=== PATIENT | male | born 1960 | race Caucasian/White ===

== ENCOUNTER 2017-02-09 02:36 | Emergency (ER) | payer OTHER ==
[~2017-02-09] VITALS: Ht 177.8 cm; Wt 90.7 kg
[~2017-02-09 02:36] MED LIST: ASPIRIN EC81 MG PO; METOPROLOL SUCC25 MG PO; MOTRIN IB200 MG PO; OMEPRAZOLE20 MG PO; PERCOCET 5-3251 EACH PO; PERCOCET 7.5-31 EACH PO; PRAVACHOL40 MG PO; TAMSULOSIN HCL0.4 MG PO
[2017-02-09] MEDS ORDERED: METOPROLOL SUCC50 MG PO (02:46)
== END 2017-02-09 03:21 | disposition home or self-care (01) ==
LOC: ED 02:36
DX: R10.9 Unspecified abdominal pain (principal); I10 Essential (primary) hypertension; K21.9 Gastro-esophageal reflux disease without esophagitis; Z90.49 Acquired absence of other specified parts of digestive tract; Z87.442 Personal history of urinary calculi; Z91.040 Latex allergy status; Z79.899 Other long term (current) drug therapy; Z79.82 Long term (current) use of aspirin
CPT/HCPCS: 81001; 99283

== ENCOUNTER 2017-10-03 21:29 | Emergency (ER) | payer OTHER ==
[~2017-10-03] VITALS: Ht 177.8 cm; Wt 90.7 kg
[~2017-10-03 21:29] MED LIST changes: +METOPROLOL SUCC50 MG PO
[2017-10-03] MEDS ORDERED: ZOFRAN ODT4 MG PO ×2 (22:54)
[2017-10-03] MEDS ORDERED: NORCO 5-325 TA1 EACH PO ×2 (22:54)
[2017-10-06] MEDS ORDERED: FLOMAX0.4 MG PO ×2 (04:04)
== END 2017-10-03 23:25 | disposition home or self-care (01) ==
LOC: ED 21:29
DX: N20.1 Calculus of ureter (principal); I10 Essential (primary) hypertension; K21.9 Gastro-esophageal reflux disease without esophagitis; Z79.82 Long term (current) use of aspirin; Z79.899 Other long term (current) drug therapy
CPT/HCPCS: 74176; 81001; 96374; 96375; 99284; J1170; J1885; J2405

== ENCOUNTER 2017-10-06 03:50 | Emergency (ER) | payer OTHER ==
[~2017-10-06] VITALS: Ht 177.8 cm; Wt 90.7 kg
[~2017-10-06 03:50] MED LIST changes: +NORCO 5-325 TA1 EACH PO; +ZOFRAN ODT4 MG PO
[2017-10-06] MEDS ORDERED: FLOMAX0.4 MG PO (04:04)
== END 2017-10-06 07:01 | disposition home or self-care (01) ==
LOC: ED 03:50
DX: N20.1 Calculus of ureter (principal); I10 Essential (primary) hypertension; K21.9 Gastro-esophageal reflux disease without esophagitis; Z87.442 Personal history of urinary calculi; Z91.041 Radiographic dye allergy status; Z91.040 Latex allergy status; Z79.899 Other long term (current) drug therapy; Z79.82 Long term (current) use of aspirin
CPT/HCPCS: 96374; 96375; 99282; J1170; J1885; J2405; J7030

== ENCOUNTER 2017-10-06 16:04 | Day surgery (SDC) | payer OTHER ==
[~2017-10-06] VITALS: Ht 177.8 cm; Wt 97.1 kg
[~2017-10-06 16:04] MED LIST changes: +FLOMAX0.4 MG PO
--- NOTE | 2017-10-06 18:38 | NUR ---
PT ARRIVED TO ROOM 109 AT 1830. AT BEDSIDE. CHANGED INTO GOWN. WILL START AN IV NOW.
--- NOTE | 2017-10-06 19:00 | NUR ---
RECEIVED REPORT FROM RN. PATIENT IS RESTING IN BED, BREATHING IS EVEN AND UNLABORED. REPORTS 8/10 PAIN IN RIGHT FLANK. CALL LIGHT WITHIN REACH.
--- NOTE | 2017-10-06 19:20 | NUR ---
PATIENT REPORTS 8/10 PAIN IN RIGHT FLANK, PRN DILAUDID GIVEN PER EMAR. DENIES FURTHER NEEDS. CALL LIGHT WITHIN REACH.
--- NOTE | 2017-10-06 19:46 | NUR ---
PATIENT TAKEN OFF FLOOR BY OR TEAM VIA STRETCHER TO OR.
--- NOTE | 2017-10-06 21:56 | NUR ---
10/06/172155 Saige Riggs 2125: PATIENT ARRIVES TO PACU TENSE AND SHAKING. OXYGEN SATURATION IS DECREASING ON 6L VIA MASK. OXYGEN SATURATION INCREASED TO 10L VIA MASK. PATIENT IS ALERT AND DENIES SOB. PATIENT DENIES PAIN. PATIENT REPORTS HE IS "CONFUSED" AND HAS A "SCRATCHY COUGH". ORTHOPTIST IS AT THE BEDSIDE ADMINISTERING BETA FERN. NEBULIZER TREATMENT IS VERBALLY ORDERED AND THAT IS GIVEN. HOB IS ELEVATED. CXR IS VERBALLY ORDERED AND THAT IS COMPLETE.
--- NOTE | 2017-10-06 23:28 | NUR ---
ADMIT TO CCU FROM PACU AT 2305. PT IS ALERT, ORIENTED, DENIES PAIN. HR 70-90, SINUS RHYTHM. DR PALMA IN TO SEE PT. PT GIVEN CALL LIGHT AND INSTRUCTED TO CALL WHEN NEEDS TO VOID. DRINKING WATER. GIVEN ICE CHIPS.
--- NOTE | 2017-10-07 00:22 | NUR ---
AMB TO BR, NO INC IN HR. WAS OFF 02 AND DID DESAT TO 86%, 02 REPLACED 4L NC. URINE BURGUNDY COLORED AND PT DID REPORT SOME R KIDNEY PAIN WITH URINATION. SCDS IN PLACE AFTER GETTING BACK TO BED.
--- NOTE | 2017-10-07 02:10 | NUR ---
ANSWERED CALL LIGHT AND FOUND PT STANDING NEXT TO BED, STATING NEEDING TO VOID. SCD'S DISCONNECT AND PT AMB TO BR TO VOID BLOODY URINE. BACK TO BED. HAD TAKEN 02 OFF. AFTER GETTING BACK TO BED PT DID SHIVER SOME WHICH HE SAID WAS DUE TO KIDNEY PAIN. AFEBRILE. SAT 89% ON RA, 02 AT 2L NC NOW.
--- NOTE | 2017-10-07 03:36 | NUR ---
SLEEPING, SAT 96/5 ON 2L NC.
--- NOTE | 2017-10-07 05:04 | NUR ---
PT AWAKENED FROM VERY SOUND SLEEP. BREATH TONES SL COARSE IN BASES THAT CLEARED WITH COUGHING. UP TO BR TO VOID BLOODY URINE. 02 DEC TO 1L NC. TAKING ICE CHIPS. TOLD PT TO LET ME KNOW IF PAIN WITH URINATION DOESN'T GET BETTER AND WILL GIVE PAIN MED.
--- NOTE | 2017-10-07 07:37 | NUR ---
REPORT TO DAY SHIFT, NO OTHER CHANGES.
--- NOTE | 2017-10-07 07:58 | NUR ---
Report recieved from second shift supervisor RN. Patient asleep in room with HOB up at 35 degrees.
--- NOTE | 2017-10-07 08:46 | NUR ---
Breakfast ordered and now here, patient eating. Has urinated this shift and states is bloody and painful, burning and an ache up into kidney. O2 was removed and O2 saturation is 94% currently with RR of 21.
--- NOTE | 2017-10-07 09:19 | NUR ---
Up to bathroom to urinate.
--- NOTE | 2017-10-07 09:52 | NUR ---
STATES WHEN CAME BACK FROM BATHROOM STARTED TO FEEL HOT AND INCREASED PAIN IN KIDNEY, NOW HAS DISSIPATED.
--- NOTE | 2017-10-07 10:16 | NUR ---
Dr Stovall called me, I gave her updates on how the patient did through the evening and this morning. She states will be coming in to see him around lunch time.
--- NOTE | 2017-10-07 10:29 | NUR ---
Dr Lee in to see patient. in room too. Patient up to restroom to urinate.
--- NOTE | 2017-10-07 11:03 | OR ---
[facility] [address], [place] [address] Signed DATE OF OPERATION: 10/06/2017 SURGEON: Augustina Bloom MD PREOPERATIVE DIAGNOSES: 1. Right ureterolithiasis. 2. Severe right-sided flank pain with associated nausea and vomiting. POSTOPERATIVE DIAGNOSES: 1. Right ureterolithiasis. 2. Severe right-sided flank pain with associated nausea and vomiting. 3. Distal right ureteral stenosis. NAMES OF PROCEDURES: 1. Diagnostic cystoscopy with right retrograde pyelogram. 2. Right semi-rigid ureteroscopy with laser lithotripsy and basket extraction of stones. 3. Insertion of an indwelling right ureteral stent. ANESTHESIA: General. ESTIMATED BLOOD LOSS: Minimal. COMPLICATIONS: None. SPECIMENS: None. INDICATIONS FOR PROCEDURE: Mr. Antoine is a very pleasant 57-year-old gentleman with a longstanding history of nephrolithiasis, who presented to the emergency department early this morning with a 3-day history of severe right-sided flank pain with associated nausea and vomiting. The emergency department physician contacted me this morning to let me know that the patient was requesting surgical extraction of the stone. The patient was immediately placed on the clinic schedule and was evaluated. He was afebrile at the time. His urine appeared clear. He was still experiencing severe right-sided flank pain with nausea. The patient has a long-standing history of stones and has required multiple ureteral stone extractions in the past. The patient requested urgent stone extraction and after Electronically Signed By: AUGUSTINA BLOOM MD 10/07/17 1103 PATIENT NAME: SUMAYA ANTOINE II OPERATIVE REPORT DATE OF : 62 REPORT #: [id number] PHYSICIAN: AUGUSTINA BLOOM MD PCP: Huber BOYKIN MD REPORT IS CONFIDENTIAL AND NOT TO BE RELEASED WITHOUT AUTHORIZATION [facility] [address], [place] [address] Signed discussion of the risks and benefits of the procedure, the patient was placed on the operating room schedule later this evening to undergo right ureteroscopy with laser lithotripsy and basket extraction of stones. OPERATIVE FINDINGS: 1. On cystoscopy, there was no evidence of any suspicious mass, lesions, or stones. Bilateral ureteral orifices are noted in their normal anatomic location and are diminutive in nature. 2. Right retrograde pyelogram was initially performed, which revealed the presence of an approximately 4 mm stone, approximately 2 cm proximal to the right ureterovesical junction. After extraction of the stone, I repeated a right retrograde pyelogram, which revealed no evidence of any contrast extravasation from the right ureter. It also confirmed that the entirety of the right ureteral stone had been successfully extracted. 3. Right semi-rigid ureteroscopy revealed approximately 4 mm stone in the distal portion of the ureter, approximately 2 cm proximal to the right ureterovesical junction. The stone was fragmented using a holmium laser without difficulty. The fragments were then extracted through a distal ureter that was very diminutive in caliber with some evidence of previous scar tissue noted. The entire stone was successfully extracted. 4. A 6 x 26 cm contour double-J ureteral stent was inserted into the right ureter under direct visualization without difficulty. DESCRIPTION OF PROCEDURE: After informed consent was obtained, the patient was taken back to the operating room. He was transferred from the bed to the operating room table, where general anesthesia was induced. He was placed in the dorsal lithotomy position and his genitalia prepped and draped in a standard sterile fashion. Using a 30-degree lens on a 22-Monegasque introducer, rigid cystoscope was inserted through his urethra and into his bladder under direct visualization. Panendoscopic views of the bladder were then obtained. Please see the findings. Attention was turned to the right ureteral orifice. A cone-tipped catheter was inserted just at the level of the right ureteral orifice and a right retrograde pyelogram was performed. Please see the findings. I then inserted a 0.035 Sensor wire into the right ureter and up into the right collecting system and confirmed placement of the wire on fluoroscopy. Over the wire, I passed a semi-rigid ureteroscope into the distal right ureter and was then able to visualize the 4 mm stone in the distal right ureter along with the associated area of stenosis. The stone was fragmented using holmium laser at the 8 and 0.8 power configuration. The stone fragmented easily. I was able to use a Zero tip basket to then extract the stones one by one without difficulty. Once I was satisfied that all the stones were extracted, I repeated the retrograde pyelogram, which confirmed my suspicion. I then inserted the Sensor wire into the right ureter via the ureteroscope and confirmed placement of the wire in the right renal pelvis. I then removed the ureteral scope. Over the wire, I passed a 6 x 26 cm contour double-J ureteral stent into the patient's right ureter under direct visualization Electronically Signed By: AUGUSTINA BLOOM MD 10/07/17 1103 PATIENT NAME: SUMAYA ANTOINE II OPERATIVE REPORT DATE OF : 62 REPORT #: [id number] PHYSICIAN: AUGUSTINA BLOOM MD PCP: Huber BOYKIN MD REPORT IS CONFIDENTIAL AND NOT TO BE RELEASED WITHOUT AUTHORIZATION [address] [address] Signed without difficulty. The Sensor wire was pulled. An adequate proximal coil was seen on fluoroscopy along with an adequate distal coil within the bladder. The patient's bladder was then drained and the procedure was then terminated. The patient tolerated the procedure well without any complication. He will now be transferred to the postanesthesia care unit in stable condition. DISPOSITION: I discussed the details of today's procedure with the patient's and answered all questions. He will be sent home today with Percocet 5/325, dispense #30 as needed for pain along with Cipro 500 mg one tab p.o. b.i.d. for a total of seven days. He has agreed to contact the clinic tomorrow to schedule a followup appointment on or around October 16 to undergo cystoscopy with right ureteral stent extraction. MD ALDO Graves/ERICA /[id number] Copies: ~ Electronically Signed By: AUGUSTINA BLOOM MD 10/07/17 1103 PATIENT NAME: SUMAYA ANTOINE II OPERATIVE REPORT DATE OF : 62 REPORT #: [id number] PHYSICIAN: AUGUSTINA BLOOM MD PCP: Huber BOYKIN MD REPORT IS CONFIDENTIAL AND NOT TO BE RELEASED WITHOUT AUTHORIZATION
--- NOTE | 2017-10-07 11:48 | NUR ---
VS AND I&O'S TAKEN AND DOCUMENTED. URINAL EMPTIED. PT STATES NO NEEDS AT THIS TIME. INFORMED PT TO CALL IF HE NEEDS ANYTHING. CALL LIGHT IS IN REACH.
--- NOTE | 2017-10-07 12:58 | NUR ---
PATIENT UP WALKING IN THE HALLS, NOT HAVING ANY PAIN EXCEPT FOR SOME DISCOMFFORT WHEN HE URINATES. PATIENT HAS BEEN FREE OF NAUSEA WELL.
--- NOTE | 2017-10-07 13:11 | NUR ---
PATIENTT JUST GOT FOOD FROM THE [employer] AND IS EATING A SANDWICH.
--- NOTE | 2017-10-07 15:18 | NUR ---
PATIENT UP TO THE RESTROOM AND THEN BACK TO THE BEDSIDE RECLINE TO WORK ON HIS TABLET. PATIENT HAS BEEN NAPPING AWAITING THE RETURN OF FOR DISCHARGE AT 5PM.
--- NOTE | 2017-10-07 18:51 | EKG ---
[facility] [address] [facility] [place] [address] Signed Normal sinus rhythm Normal ECG No previous ECGs available Confirmed by JASON PALMA MD ([id number]) on 10/07/2017 6:51:09 PM Electronically Signed By: JASON PALMA MD 10/07/17 185 PATIENT NAME: HLOGER ANTOINETARIQ LALNATY II Electrocardiogram DATE OF : 62 PHYSICIAN: JASON PALMA MD REPORT #: [id number] REPORT IS CONFIDENTIAL AND NOT TO BE RELEASED WITHOUT AUTHORIZATION
--- NOTE | 2017-10-07 19:24 | EKG ---
[facility] [address] [place] [address] [place], [place] [address] Signed Normal sinus rhythm Normal ECG When compared with ECG of 06-OCT-2017 19:31, (Unconfirmed) No significant change was found Confirmed by JASON PALMA MD ([id number]) on 10/07/2017 7:23:52 PM Electronically Signed By: JASON PALMA MD 10/07/17 1924 PATIENT NAME: SUMAYA ANTOINE II Electrocardiogram DATE OF : 62 PHYSICIAN: JASON PALMA MD REPORT #: [id number] REPORT IS CONFIDENTIAL AND NOT TO BE RELEASED WITHOUT AUTHORIZATION
--- NOTE | 2017-10-07 20:21 | NUR ---
PATIENT SITTING IN CHAIR UPON INITIAL ASSESSMENT THIS EVENING AND OFF THE MONITOR, PATIENT IS EXPECTING TO D/C HOME. ASSESSMENT COMPLETE. VITALS TAKEN AND TEMP NOTED TO BE 98.7 ORAL AT THIS TIME. HEART RATE IN THE 70s AT THIS TIME. SP02 93% INITIALLY, BUT AFTER SOME DEEP BREATHS NOTED TO BE UP TO 98%. LUNGS WERE CLEAR TO AUSCULTATION. PATIENT STATES HE IS FEELING WELL AND EAGER TO GO HOME. IV TAKEN OUT OF RIGHT HAND WITH TIP INTACT. PT'S NEXT TO PATIENT AND GOES OVER DISCHARGE TEACHING WITH THIS RN. PT D/C WITH PRESCRIPTIONS AND DISCHARGE INFORMATION. ALL QUESTIONS ANSWERED BEST POSSIBLE.
== END 2017-10-07 20:15 | disposition home or self-care (01) ==
LOC: MS 16:04 → DS 16:04 → CCU 16:04 → MS 16:04 → CCU 22:47 → MS 22:47 → CCU 22:47 → EDSTATUS 10-07 11:24 → DS 10-07 20:15
PROVIDERS: Urology
PROC: 0TC68ZZ Extirpation of Matter from Right Ureter, Via Natural or Artificial Opening Endoscopic (ICD-10-PCS; principal; 2017-10-06 20:00)
PROC: 0T768DZ Dilation of Right Ureter with Intraluminal Device, Via Natural or Artificial Opening Endoscopic (ICD-10-PCS; 2017-10-06 20:00)
PROC: BT1DYZZ Fluoroscopy of Right Kidney, Ureter and Bladder using Other Contrast (ICD-10-PCS; 2017-10-06 20:00)
DX: N20.1 Calculus of ureter (principal); N13.5 Crossing vessel and stricture of ureter without hydronephrosis; K21.9 Gastro-esophageal reflux disease without esophagitis; E78.5 Hyperlipidemia, unspecified; Z79.899 Other long term (current) drug therapy; Z79.82 Long term (current) use of aspirin; I10 Essential (primary) hypertension; Z91.040 Latex allergy status; Z91.041 Radiographic dye allergy status
CPT/HCPCS: 00910; 36415; 71045; 74450; 80048; 85025; 93005; 93010; C2617; J0330; J0696; J1170; J2175; J2250; J2405; J2543; J2704; J2765; J3010; J7030; J7120; Q9967

== ENCOUNTER 2020-09-03 06:36 | Day surgery (SDC) | payer OTHER ==
[~2020-09-03] VITALS: Ht 176.5 cm; Wt 95.7 kg
[2020-09-03] MEDS ORDERED: BAYER CHEWABLE81 MG PO (06:59)
--- NOTE | 2020-09-03 08:28 | NUR ---
09/03/20 0828 Maggi Schwarz 0824- PT ARRIVES TO PACU EASILY AROUSABLE TO VOICE. PT REPORTS NO PAIN OR NAUSEA. PT EDUCATED ABOUT PASSING FLATUS. PT STATES UNDERSTANDING. PT FALLS TO SLEEP WHEN NOT BEING TALKED TO. RESP EVEN AND UNLABORED. OXYGEN SAT HIGH 90'S ON 3L VIA NC.
--- NOTE | 2020-09-03 09:23 | NUR ---
HAD VERY BRIEF MOMENT WITH PT HE WAS BEING TAKEN FOR SCOPE. GAVE BLESSING, CONNECTED WITH PTS' KALLIE. ALL QUESTIONS ASKED ANSWERED. WILL FOLLOW
--- NOTE | 2020-09-04 15:23 | OR ---
[facility] [address] [place], [place] [address] Signed DATE OF OPERATION: 09/03/2020 SURGEON: Mono Wilkins MD PREOPERATIVE DIAGNOSES: 1. Longstanding gastroesophageal reflux, minimal episodic dysphagia. 2. Colon surveillance. POSTOPERATIVE DIAGNOSES: 1. Normal upper endoscopy. No evidence of stricture or neoplasm. No Nova's epithelium. 2. Diverticula of sigmoid colon. 3. Possible small polyp proximal ascending colon. PROCEDURE: 1. Esophagogastroduodenoscopy with biopsy. 2. Total colonoscopy to cecum with cold morcellation and excision of polyp x1. ANESTHESIA: Intravenous sedation; fentanyl 150 mcg, Versed 9 mg. 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 In 2009, he underwent upper endoscopy for reflux symptoms as well as colonoscopy for rectal bleeding. That procedure was on February 22, 2010, found at that time was a small hiatal hernia with minimal distal esophagitis and a normal colon except for internal hemorrhoidal changes. The patient has been on PPI medication since that time and is generally free of reflux symptoms though has minimal and rare dysphagia, none in recent times. He is admitted to undergo colonoscopy for surveillance as well as upper endoscopy concurrently per his request. The risk of bleeding, infection, and perforation related to both endoscopic procedures were reviewed with him in detail. He understands and wished to proceed. FINDINGS: Upper endoscopy was normal. I saw no significant degradation of the flap valve and the mucosa of the esophagus was entirely normal. There is certainly no stricture. Stomach and duodenum were normal as well. CLOtest was negative 30 minutes post procedure. On colonoscopy, the prep was excellent. Complete colonoscopy was undertaken to the Electronically Signed By: MONO WILKINS MD 09/04/20 1523 PATIENT NAME: SUMAYA ANTOINE II OPERATIVE REPORT DATE OF : 62 REPORT #: [id number] PHYSICIAN: MONO WILKINS MD PCP: MIRTA AYALA MD REPORT IS CONFIDENTIAL AND NOT TO BE RELEASED WITHOUT AUTHORIZATION [facility] [address] [place], [place] [address] Signed cecum including intubation of the cecum. There was a very small polyp of the proximal ascending colon which was excised with cold morcellation technique. A few diverticula were noted at the sigmoid. There were no other findings of concern including no sign of active hemorrhoidal disease. DESCRIPTION OF PROCEDURE: The patient was brought to the endoscopy suite, given topical lidocaine spray, hypopharyngeal anesthesia and placed in lateral decubitus position. He was given intravenous sedation to the point of slurred speech and nystagmus with full cardiopulmonary monitoring. A bite block was placed. An Olympus video upper endoscope was passed in the hypopharynx. The vocal cords appeared normal. Scope was advanced to the esophagus; throughout its length it was normal. Scope was passed to the stomach, which was insufflated with air. Rugal folds were normal. Antral motility normal. Pylorus was normal. Scope was passed through into the duodenum, which was normal. Biopsies were taken to assess for celiac disease. The scope was withdrawn and biopsies taken of the antrum for both VITO and pathologic testing. Retroflexed view was undertaken showing no sign of hiatal hernia per se. No effacement of the flap valve per se either. The scope was withdrawn to the distal esophagus where completely normal mucosa was noted. Biopsies were obtained. The scope was withdrawn and midesophageal biopsies were also obtained to assess for eosinophilic esophagitis. The scope was removed and the patient was then prepared for colonoscopy. Additional sedation was given. Digital rectal examination was performed which was normal including a normal prostate. The Olympus video colonoscope was passed in the rectum and manipulated throughout the colon noting diverticula of the sigmoid. The scope was ultimately advanced to the right colon and visualization of the ileocecal valve was noted. There was a small mucosal abnormality suggestive of a polyp. This was excised with cold morcellation technique. Abdominal wall stabilization allowed for passage of the scope to the cecum proper. The ileocecal valve was identified and fully intubated with the cecum showing no sign of abnormality. The scope was carefully withdrawn and remaining colon upon withdrawal of the scope showed no sign of polyps, colitis, cancer, only diverticula of the sigmoid. Retroflexed view showed no prominent hemorrhoidal plexus at this time. The scope was removed and the patient was taken to the recovery room in good condition. CONCLUDING DIAGNOSES: 1. Clinical gastroesophageal reflux well managed with PPI medication. Can consider Pepcid 20 mg p.o. b.i.d. in lieu of PPI medication depending on his preference in conjunction with primary provider. 2. Diverticula of colon and possible small polyp of right colon (excised). Recommend a high-fiber diet. Recommend repeat colonoscopy in 5 years if the polyp was proven to be Electronically Signed By: MONO WILKINS MD 09/04/20 1523 PATIENT NAME: SUMAYA ANTOINE II OPERATIVE REPORT DATE OF : 62 REPORT #: [id number] PHYSICIAN: MONO WILKINS MD PCP: MIRTA AYALA MD REPORT IS CONFIDENTIAL AND NOT TO BE RELEASED WITHOUT AUTHORIZATION [address] [address] Signed adenomatous, 10 if not. MD KENZIE Griggs/MODL /[id number] cc: Mirta Ayala MD Copies: MIRTA AYALA MD ~ Electronically Signed By: MONO WILKINS MD 09/04/20 1523 PATIENT NAME: HOLGER ANTOINETARIQ ALFONSO II OPERATIVE REPORT DATE OF : 62 REPORT #: [id number] PHYSICIAN: MONO WILKINS MD PCP: MIRTA AYALA MD REPORT IS CONFIDENTIAL AND NOT TO BE RELEASED WITHOUT AUTHORIZATION
--- NOTE | 2020-09-04 16:17 | PATH ---
[facility] [address] [place], [place] [address] Signed SPECIMEN(S): A DUODENAL BIOPSY SPECIMEN(S): B ANTRUM/PYLORUS BIOPSY SPECIMEN(S): C LOWER ESOPHAGEAL BIOPSY SPECIMEN(S): D MIDDLE ESOPHAGEAL BIOPSY SPECIMEN(S): E ASCENDING COLON POLYP SPECIMEN SOURCE: A. DUODENAL BIOPSY B. ANTRUM/PYLORUS BIOPSY C. LOWER ESOPHAGEAL BIOPSY D. MIDDLE ESOPHAGEAL BIOPSY E. ASCENDING COLON POLYP CLINICAL HISTORY: Esophagogastroduodenoscopy, colonoscopy with poss. biopsies. GERD. MICROSCOPIC DESCRIPTION: Histologic sections of all submitted blocks are examined by light microscopy. These findings, together with the gross examination, support the pathologic diagnosis. FINAL PATHOLOGIC DIAGNOSIS: A. Duodenum, biopsy: - Duodenal mucosa with no histopathologic abnormality. - Negative for increased intraepithelial lymphocytes. - Negative for dysplasia or malignancy. B. Stomach, antrum, pylorus, biopsy: - Antral mucosa with no histopathologic abnormality. - Oxyntic mucosa with mild mucosal capillary congestion. - Negative for Helicobacter organisms on HE stain. - Negative for dysplasia or malignancy. C. Esophagus, lower, biopsy: - Squamous mucosa with mild chronic inflammation reactive mucosal changes, suggestive of reflux esophagitis. - Negative for intestinal metaplasia, dysplasia, or malignancy. D. Esophagus, middle, biopsy: - Squamous mucosa with minimal chronic inflammation and focal reactive changes. - Negative for increased intraepithelial eosinophils. - Negative for intestinal metaplasia, dysplasia, or malignancy. E. Colon, ascending, polyp, polypectomy: - Tubular adenoma. PATIENT NAME: SUMAYA ANTOINE II PATHOLOGY DATE OF : 62 REPORT #: [id number] PHYSICIAN: STEPHEN MEYERS PCP: MIRTA LIND MD REPORT IS CONFIDENTIAL AND NOT TO BE RELEASED WITHOUT AUTHORIZATION [facility] [address] [place], [place] [address] Signed - Negative for high-grade dysplasia or malignancy. NAL:cml:C2NR GROSS DESCRIPTION: Five specimens are received in five containers labeled with "HJ". A. The specimen, labeled "HJ," and designated on the requisition "duodenal biopsy," is received in formalin and consists of one fragment of pink-saldivar tissue (0.4 x 0.3 x 0.2 cm). The specimen is submitted entirely in cassette (A1). B. The specimen, labeled "HJ," and designated on the requisition "antrum/pylorus biopsy," is received in formalin and consists of two fragments of pink-saldivar tissue (0.5 x 0.2 x 0.2 cm in aggregate). The specimen is submitted entirely in cassette (B1). C. The specimen, labeled "HJ," and designated on the requisition "lower esophagus biopsy," is received in formalin and consists of two fragments of white-saldivar tissue (0.5 x 0.3 x 0.1 cm in aggregate). The specimen is submitted entirely in cassette (C1). D. The specimen, labeled "HJ," and designated on the requisition "middle esophagus biopsy," is received in formalin and consists of two fragments of white-saldivar tissue (0.5 x 0.3 x 0.1 cm in aggregate). The specimen is submitted entirely in cassette (D1). E. The specimen, labeled "HJ," and designated on the requisition "ascending/right polypectomy," is received in formalin and consists of two fragments of pink-saldivar tissue (0.5 x 0.2 x 0.1 cm in aggregate). The specimen is submitted entirely in cassette (E1). AC (under the direct supervision of a pathologist The Gross Description was prepared using a voice recognition system. The report was reviewed for accuracy; however, sound-alike word errors, addition and/or deletions may occur. If there is any question about this report, please contact Client Services. PERFORMING LABORATORY: The technical component was performed by [facility] [address] (Data Services Developer: Sammi Carter MD; CLIA# [id number]). Professional interpretation was performed by [facility], [address] [address] (CLIA# [id number]). Diagnostician: Alison Thayer MD Pathologist PATIENT NAME: SUMAYA ANTOINE II PATHOLOGY DATE OF : 62 REPORT #: [id number] PHYSICIAN: STEPHEN PATHOLOGY PCP: MIRTA LIND MD REPORT IS CONFIDENTIAL AND NOT TO BE RELEASED WITHOUT AUTHORIZATION [facility] [address] [place], [place] [address] Signed Electronically Signed 09/04/2020 Copies: ~ PATIENT NAME: SUMAYA ANTOINE NATY PATHOLOGY DATE OF : 62 REPORT #: [id number] PHYSICIAN: STEPHEN PATHOLOGY PCP: MIRTA LIND MD REPORT IS CONFIDENTIAL AND NOT TO BE RELEASED WITHOUT AUTHORIZATION
== END 2020-09-03 09:20 | disposition home or self-care (01) ==
LOC: DS 06:36 → OPS 06:36 → DS 06:45 → OPS 09:20
PROVIDERS: ATTEND Surgery
PROC: 0DB28ZX Excision of Middle Esophagus, Via Natural or Artificial Opening Endoscopic, Diagnostic (ICD-10-PCS; 2020-09-03)
PROC: 0DB38ZX Excision of Lower Esophagus, Via Natural or Artificial Opening Endoscopic, Diagnostic (ICD-10-PCS; 2020-09-03)
PROC: 0DBK8ZX Excision of Ascending Colon, Via Natural or Artificial Opening Endoscopic, Diagnostic (ICD-10-PCS; 2020-09-03)
PROC: 0DB98ZX Excision of Duodenum, Via Natural or Artificial Opening Endoscopic, Diagnostic (ICD-10-PCS; principal; 2020-09-03 06:45)
PROC: 0DB78ZX Excision of Stomach, Pylorus, Via Natural or Artificial Opening Endoscopic, Diagnostic (ICD-10-PCS; 2020-09-03 06:45)
DX: Z12.11 Encounter for screening for malignant neoplasm of colon (principal); D12.2 Benign neoplasm of ascending colon; K20.90 Esophagitis, unspecified without bleeding; K21.9 Gastro-esophageal reflux disease without esophagitis; I10 Essential (primary) hypertension; E78.5 Hyperlipidemia, unspecified; M76.32 Iliotibial band syndrome, left leg; M76.31 Iliotibial band syndrome, right leg
CPT/HCPCS: 99153; G0500; J2250; J3010; J7121

== ENCOUNTER 2022-01-28 06:23 | Emergency (ER) | payer OTHER ==
[~2022-01-28] VITALS: Ht 177.8 cm; Wt 80.7 kg
[~2022-01-28 06:23] MED LIST changes: +BAYER CHEWABLE81 MG PO
[2022-01-28] MEDS ORDERED: ROSUVASTATIN CA10 MG PO (06:36)
== END 2022-01-28 09:28 | disposition home or self-care (01) ==
LOC: ED 06:23
DX: N20.2 Calculus of kidney with calculus of ureter (principal); I10 Essential (primary) hypertension; Z91.041 Radiographic dye allergy status; Z91.040 Latex allergy status; Z79.899 Other long term (current) drug therapy
CPT/HCPCS: 36415; 74176; 80053; 81001; 85025; J1885; J2405; U0003

== ENCOUNTER 2023-11-30 10:05 | Day surgery (SDC) | payer OTHER ==
[2023-11-24 15:18] VITALS: BP 128/70
[~2023-11-30] VITALS: Ht 177.8 cm; Wt 90.9 kg
[~2023-11-30 10:05] MED LIST changes: +ACTOS15 MG PO; +CEFAZOLIN SODIUM 2 GM/20 ML SYR IV SCH; +CRESTOR40 MG NG; +FISH OIL 1,001000 MG PO; +HYDROmorphone HCL 1 MG/ML SYR IV PRN; +IBLOOD GLUCOSE TEST STRIP 1 EA TEST VI PRN; +KETOROLAC TROMETHAMINE 30 MG/ML VIAL IV PRN; +LACTATED RINGER'S 1,000 ML IV SCH; +LIDOCAINE HCL 1% 5 ML SDV INJ ONE; +METOPROLOL TART25 MG PO; +OXYCODONE/APAP 5/325 TAB PO PRN; +PHENAZOPYRIDINE HCL 95 MG TAB PO PRN; +PROMETHAZINE HCL 25 MG TAB PO PRN; +TRAMADOL HCL 50 MG TAB PO PRN; +VITAMIN D250 MC1 PO; +ondansetron HCL 4 MG/2 ML VIAL IV PRN
[2023-11-30 10:20] VITALS: BP 117/71
[2023-11-30] MEDS ORDERED: iopamidoL 30 ML VIAL ONE (11:02)
[2023-11-30] MEDS ORDERED: LIDOCAINE HCL 2% 5 ML SDV ONE (11:10)
[2023-11-30] MEDS ORDERED: propofoL 200 MG/20 ML VIAL ONE (11:11)
[2023-11-30] MEDS ORDERED: KETAMINE in NS 50 MG/5 ML SYR ONE (11:12)
[2023-11-30] MEDS ORDERED: ondansetron HCL 4 MG/2 ML VIAL ONE (11:12)
[2023-11-30] MEDS ORDERED: ePHEDrine sulfate 50 MG/ML AMP ONE (11:33)
[2023-11-30] MEDS ORDERED: LACTATED RINGER'S 1,000 ML IV ONE (12:14)
[2023-11-30 13:13] VITALS: BP 138/77
--- NOTE | 2023-11-30 13:15 | NUR ---
PT ARRIVED BACK TO FROM PACU AT APPROX 1310. REPORT RECEIVED FROM RICHIE OCCUPATIONAL HEALTH PHYSICIAN. PT RECEIVED GENERAL ANESTHESIA DURING PROCEDURE. NO STONES WERE FOUND AND PT HAD L URETER STENT PLACED WITH EXTERNAL STRING STERI STRIPPED TO HEAD OF PENIS. PT NOTED WITH MODERATE AMTS OF BLOOD STEADILY DRAINING FROM URETHRAL OPENING AND POOLING IN RUTH AREA BETWEEN PTS LEGS. RUTH-CARE PROVIDED TO CLEAN DRAINAGE. 2-2X2 GAUZE PLACED AT URETHRAL OPENING TO HELP ABSORB DRAINAGE. PT DRINKING ICE WATER AND WAS GIVEN OTONIEL CRACKERS AND APPLESAUCE. VS TAKEN AND STABLE. PT REPORTS PAIN 2-3/10. PT DENIES URGENCY TO VOID. IN ROOM AT PTS BEDSIDE. PT TOOK 1300ML OF FLUID WHILE IN OR/PACU PER OCCUPATIONAL HEALTH PHYSICIAN REPORT. PT RECEIVED TORADOL AND PYRIDIUM WHILE IN PACU PER REPORT RECEIVED. REPORTS SHE SPOKE WITH DR. BLOOM AFTER SURGERY AND WAS TOLD NO F/U APPT NEEDED, UNLESS ISSUES ARISE. WAS ALSO INFORMED THAT STENT CAN BE SELF-REMOVED AT HOME ON THURSDAY. PT VERBALIZED UNDERSTANDING. CALL LIGHT WITHIN REACH. SCD'S IN PLACE. IV SITE WNL'S. PT DENIES ANY FURTHER NEEDS/QUESTIONS.
--- NOTE | 2023-11-30 13:42 | NUR ---
11/30/23 1342 Zita Aleman 1235- PT PRESENTS TO PACU, SEMI RODRIGEZ POSITION. NON REACTIVE TO STIMULUS, OPA IN PLACE. BREATHING EVEN AND NON LABORED MAINTAINING OWN AIRWAY, O2 AT 6L PER MASK. LR INFUSING TO RH IV. STENT SECURED TO PENIS WITH STERI STRIPS, SMALL AMOUNT OF DRY BLOOD TO LEFT THIGH. ALL MONITORS IN PLACE. 1239- PT STARTING TO WAKE, PUSHING AT OPA WITH TONGUE. REMOVED AT THIS TIME, O2 REMAINS IN PLACE. 1243- PT OPENING EYES LOOKING AROUND, VERY DROWSY WITH NYSTAGMUS. REORIENTED TO TIME AND PLACE. 1246- PT MOVED TO ROOM AIR AT THIS TIME. PT REPORTS SOME "TWINGING" PAIN TO PENIS. WILL MEDICATE PER ORDERS. 1255- PT SITTING UP AND DRINKING ICE WATER, TOLERATING WELL. LR CONTINUES TO INFUSE. NO SIGNS OF DISTRESS. 1310- PT BACK TO DAY SURGERY, SMALL AMOUNT OF NEW BLOODY DRAINAGE FROM PENIS. LR HANGING TO RH IV. PT ALERT BUT DROWSY, ANSWERS QUESTIONS APPROPRIATELY. REPORTS PAIN HAS IMPROVED. REPORT TO RKAAN ROMERO AT BEDSIDE. CARE OF PT TURNED OVER AT THIS TIME.
[2023-11-30 14:15] VITALS: BP 129/79
[2023-11-30] MEDS ORDERED: oxyBUTYnin chloride 5 MG TAB PO ONE (14:15)
--- NOTE | 2023-11-30 14:15 | NUR ---
LE-1340-PT USED CALL LIGHT TO ALERT THIS RN THAT GAUZE PLACED APPROX 10 MINS PRIOR HAD SATURATED WITH SANGUINOUS DRAIANGE FROM [facility]. ASSISTED PT WITH CLEANING SANGUINOUS DRAIANGE FROM [facility]. OFFERED PULL-UP STYLE UG TO AID IN ABSORPTION OF BLEEDING. PT ACCEPTED AND THIS RN ASSITED PT IN PLACING. PT REPORTED URGE TO VOID. PT GIVEN URINAL AND ASSISTED WITH STANDING AT BEDSIDE. PT WAS ABLE TO VOID 300ML OF BRIGHT RED BLOOD COLORED URINE. IMMEADIATLY AFTER URINE FLOW STOPPED, PT FELT PRESSURE IN [facility] AND 3-50 CENT SIZE CLOTS EMERGED FROM [facility]RA. ASSISTED PT IN CLEANING CLOTS OUT OF STENT STRING AND PULLING UP UG AND REPOSITIONING IN FRESHLY CHANGED BEDDING. NEW GOWN PROVIDED D/T BLEEDING FROM URE[facility]RA SOILING PREVIOUS GOWN. IV SL'D. CALL LIGHT WITHIN PT REACH. [id number] WITH ASSISTANT ADMINISTRATOR REGARDING AMT OF BLEEDING FROM [facility]. [id number] RN POLA CALLED DR. BLOOM TO REPORT THE ABOVE CONCERNS. NEW ORDERS RECEIVED FOR OXYBUTYNIN 5MG PO X 1 TO BE GIVEN AND TO HAVE A KUB COMPLETED. ORDERS PLACED BY HEATHER HAWLEY. 1415-VS TAKEN. STABLE. WATER REFILLED. REMAINS IN ROOM AT PTS BEDSIDE. CALL LIGHT WITHIN PT REACH. PHARMACY ARRIVED WITH OXYBUTYNIN DOSE. DOSE GIVEN TO PT PER ORDERS. RADIOLOGY ARRIVED FOR KUB. 1430-RADIOLOGY COMPLETED KUB. FRESH GAUZE PLACED IN UG TO MONITOR AMT OF BLEEDING UNTIL REASSESSMENT.
[2023-11-30 15:15] VITALS: BP 118/70
--- NOTE | 2023-11-30 15:17 | NUR ---
LE-1509-DR. BLOOM ARRIVED AND UPDATE GIVEN. BLEEDING FROM [facility] HAS SIGNIFICANTLY DECREASED WITH ONLY QUARTER SIZED AREA OF DRAINAGE NOTED ON GAUZE PLACED APPROX 20-[address] BLOOM OBSERVED DECREASED DRAINAGE WITH THIS RN AND SPOKE WITH PT AND HIS . CALL LIGHT LEFT WITHIN PT REACH. PT DENIES ANY NEEDS/QUESTIONS.
[2023-11-30 16:15] VITALS: BP 114/69
--- NOTE | 2023-11-30 16:20 | NUR ---
1615-INTO PTS ROOM FOR ROUTINE REASSESSMENT. VS TAKEN, STABLE. PT REPORTS PAIN HAS DECREASED TO 1/10. PT DENIES NAUSEA WHEN ASKED. PT REPORTS TOILETING SELF. PT REPORTS PASSING ANOTHER SMALL CLOT WITH URINATION AND URINEW BLOOD TINGED. PT REPORTS VOIDING "NORMAL AMT" AT ONE TIME WITHOUT MUCH DIFFICULTY. PT EATING AND DRINKING WITHOUT ISSUES. REMAINS AT PTS BEDSIDE. BLEEDING FROM [facility] HAS SLOWED SUBSTANTIALLY WITH ONLY SMALL AMT SEEN ON GAUZE AFTER 1 HOUR CHECK. DISCHARGE TEACHING GONE OVER WITH PT. PT WILL CALL TOMORROW TO DR. BLOOM OFFICE TO SCHEDULE 4-6 WEEK POST OP APPT. PT VERBALIZED UNDERSTANDING OF ALL INSTRUCTIONS AND DENIES ANY QUESTIONS/CONCERNS. IV REMOVED. TIP OBSERVED TO BE INTACT. PRESSURE DRSG APPLIED USING GAUZE AND COBAN. PT GIVEN BAG OF PERSONAL BELONGINGS AND CALL LIGHT WITHIN REACH. THIS RN STEPPED OUT OF ROOM FOR PT TO DRESS WITH WIFES ASSISTANCE.
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
== END 2023-11-30 16:30 | disposition home or self-care (01) ==
LOC: DS 10:05
PROVIDERS: ATTEND Urology
PROC: 0WHR8YZ Insertion of Other Device into Genitourinary Tract, Via Natural or Artificial Opening Endoscopic (ICD-10-PCS; principal; 2023-11-30 12:10)
DX: N20.0 Calculus of kidney (principal); N32.89 Other specified disorders of bladder; I10 Essential (primary) hypertension; Z79.899 Other long term (current) drug therapy; Z88.8 Allergy status to other drugs, medicaments and biological substances
CPT/HCPCS: 00910; 74018; 74420; C1769; C2617; J0690; J1885; J2001; J2405; J2704; J3490; J7121; Q9967

== ENCOUNTER 2025-05-05 10:09 | Emergency (ER) | payer OTHER ==
[~2025-05-05] VITALS: Ht 177.8 cm; Wt 91.2 kg
[~2025-05-05 10:09] MED LIST changes: +BERBERINE500 MG PO; -CEFAZOLIN SODIUM 2 GM/20 ML SYR IV SCH; +CINNAMON500 MG PO; +COQ1050 MG PO; -HYDROmorphone HCL 1 MG/ML SYR IV PRN; -IBLOOD GLUCOSE TEST STRIP 1 EA TEST VI PRN; -KETOROLAC TROMETHAMINE 30 MG/ML VIAL IV PRN; -LACTATED RINGER'S 1,000 ML IV SCH; -LIDOCAINE HCL 1% 5 ML SDV INJ ONE; -OXYCODONE/APAP 5/325 TAB PO PRN; -PHENAZOPYRIDINE HCL 95 MG TAB PO PRN; -PROMETHAZINE HCL 25 MG TAB PO PRN; -TRAMADOL HCL 50 MG TAB PO PRN; -ondansetron HCL 4 MG/2 ML VIAL IV PRN
[2025-05-05] MEDS ORDERED: DIPHTH,PERTUSS(ACELL),TET VAC 0.5 ML SYRINGE IM ONE (10:30)
[2025-05-05 12:36] VITALS: BP 122/69
== END 2025-05-05 12:35 | disposition home or self-care (01) ==
LOC: ED 10:09
DX: S01.412A Laceration without foreign body of left cheek and temporomandibular area, initial encounter (principal); I10 Essential (primary) hypertension; K21.9 Gastro-esophageal reflux disease without esophagitis; Z87.442 Personal history of urinary calculi; Z91.041 Radiographic dye allergy status; Z91.040 Latex allergy status; Z79.899 Other long term (current) drug therapy; Z79.82 Long term (current) use of aspirin; W22.8XXA Striking against or struck by other objects, initial encounter
CPT/HCPCS: 12011; 90471; 90715; 99282-25